=== PATIENT | male | born 1935 | race Caucasian/White ===

== ENCOUNTER 2018-10-20 13:46 | Inpatient (IN) | payer MEDICARE ==
[~2018-10-20] VITALS: Ht 185.4 cm; Wt 64.4 kg
[~2018-10-20 13:46] MED LIST: FELO5TAB31 PO; PROP150T28 PO
[2018-10-20] MEDS ORDERED: HYDROCODONE/ACETAMINOPHEN 5/325 MG TAB ONE (14:41)
[2018-10-20] MEDS ORDERED: KETOROLAC TROMETHAMINE 15MG/ML ONE (14:41)
[2018-10-20 15:04] LABS: BASOPHILS % (AUTO) 0.7 % (0.0-5.0); HEMATOCRIT 24.2 % (42-54); LYMPHOCYTES % (AUTO) 0.5 % (21.0-51.0); MEAN CORPUSCULAR HEMOGLOBIN 29.9 pg (27.0-33.0); MEAN CORPUSCULAR HGB CONC 33.8 g/dL (32.0-36.0); MEAN CORPUSCULAR VOLUME 88.3 fL (79-99); MONOCYTES % (AUTO) 0.1 % (3.0-13.0); NEUTROPHILS % (AUTO) 98.7 % (40.0-77.0); NUCLEATED RED BLOOD CELLS 0.1 % (0.0-0.19); PLATELET COUNT (AUTO) 205 K/uL (130-400); RED BLOOD CELL COUNT(AUTO) 2.74 MIL/uL (4.50-6.20); RED CELL DISTRIBUTION WIDTH 16.5 % (11.0-15.5); WHITE BLOOD COUNT (AUTO) 10.6 K/uL (4.8-10.8)
[2018-10-20 15:16] LABS: CREATININE 0.8 mg/dL (0.5-1.5); POTASSIUM 4.2 mmol/L (3.5-5.1)
[2018-10-20 16:33] LABS: APPEARANCE,URINE Clear (CLEAR); BILIRUBIN,URINE Negative (NEGATIVE); COLOR,URINE Yellow (YELLOW); GLUCOSE, URINE (UA) Negative (NEGATIVE); KETONES,URINE Negative (NEGATIVE); LEUKOCYTE ESTERASE ,URINE Negative (NEGATIVE); NITRATE,URINE Negative (NEGATIVE); OCCULT BLOOD,URINE Negative (NEGATIVE); PH,URINE 7.5 (5.0-8.0); PROTEIN,URINE Negative (NEGATIVE)
[2018-10-20 20:36] VITALS: BP 115/58
[2018-10-20] MEDS ORDERED: SODIUM CHLORIDE 0.9% 1000ML 1,000 ML IV SCH (21:15)
[2018-10-20] MEDS: KETOROLAC TROMETHAMINE 30MG/ML IV PRN (23:08)
[2018-10-20 23:51] VITALS: BP 100/53
[2018-10-21 04:49] VITALS: BP 108/62
[2018-10-21 08:00] VITALS: BP 124/64
[2018-10-21] MEDS ORDERED: LISI2.5T2 PO (09:48)
[2018-10-21] MEDS ORDERED: PROP150T28 PO (09:48)
--- NOTE | 2018-10-21 11:30 | NUR ---
DC PLAN VISITED WITH PATIENT. PATIENT LIVES WITH SPOUSE. INDEPENDENT ABLE TO PERFORM ADL'S. PATIENT HAS [employer]. WALKER AND CANE AVAILABLE. PATIENT FEELS SAFE TO RETURN HOME. Addendum: 10/21/18 at 1132 by DAYAMI CARRASCO RN CM Amended: Links added.
[2018-10-21 12:00] VITALS: BP 101/50
--- NOTE | 2018-10-21 14:41 | NUR ---
DC PLAN CHANGED FROM HOME TO SNF. [facility] SIGNED FOR [facility]. REP AWARE VISITING PATIENT. PENDING PT EVAL NOTES. PER PATIENT HAS BEEN TO HOSPITAL IN LAST 30 DAYS MIGHT NOT NEED 3 MIDNIGHTS. [facility] CHECKING RECORDS. Addendum: 10/21/18 at 1443 by DAYAMI CARRASCO RN CM Amended: Links added.
--- NOTE | 2018-10-21 15:14 | NUR ---
BACK BRACE ORDERED BY NURSING.Will utilize back brace with PT activity once available. Addendum: 10/21/18 at 1516 by ILEANA NEWMAN, PT PT Amended: Links added.
[2018-10-21] MEDS: KETOROLAC TROMETHAMINE 30MG/ML IV PRN (15:44)
--- NOTE | 2018-10-21 15:46 | NUR ---
RD Notification Patient tolerating current appetite with PO intake 75-100%. Rec to add Ensure BID as per patient request. Patient reports feelings of constipation. Patient LBM 10/20/18. Patient monitored labs: Cl 100, CO2 33, BUN 22, Glu 229. RD to continue to monitor. Please notify RD as nutritional concerns arise. Thank you. Addendum: 10/21/18 at [address] RD Amended: Links added.
[2018-10-21 16:00] VITALS: BP 114/57
--- NOTE | 2018-10-21 16:53 | NUR ---
SONG BENITES [facility] CALLED CONFIRMED THAT PATIENT HAS BEEN IN HOSPITAL IN THE LAST 30 DAYS. DOES NOT NEED 3 MIDNIGHTS. LYNDA DONE AND SENT. PATIENT ABLE TO AMBULATE WILL GO VIA F[facility]ILITY [facility]. Addendum: 10/21/18 at 1655 by DAYAMI CARRASCO RN CM Amended: Links added.
--- NOTE | 2018-10-22 08:53 | NUR ---
DC PLAN VISITED WITH PATIENT. BEATRIZ SIGNED FOR [facility] REP VISITED AND ACCEPTED PATIENT. LET NURSE KNOW. LYNDA DONE AND SENT. WILL GO VIA FACILITY [facility]. Addendum: 10/22/18 at 0855 by DAYAMI CARRASCO RN CM Amended: Links added.
[2018-10-22] MEDS ORDERED: LISINOPRIL 2.5 MG TABLET PO SCH (09:00)
[2018-10-22] MEDS ORDERED: PROPAFENONE HCL 150 MG TABLET PO SCH (09:00)
== END 2018-10-21 19:15 | DRG 552 ==
LOC: EDH 13:46 → EDHIP 17:45 → 4BH 18:24
PROVIDERS: ADMIT Internal Medicine Hematology & Oncology; ATTEND Internal Medicine Hematology & Oncology
DX: S22.089A Unspecified fracture of T11-T12 vertebra, initial encounter for closed fracture (principal); C85.90 Non-Hodgkin lymphoma, unspecified, unspecified site; R55 Syncope and collapse; D64.9 Anemia, unspecified; Z96.649 Presence of unspecified artificial hip joint; W01.0XXA Fall on same level from slipping, tripping and stumbling without subsequent striking against object, initial encounter; Y93.89 Activity, other specified; Y92.89 Other specified places as the place of occurrence of the external cause; Y99.8 Other external cause status
CPT/HCPCS: 36415; 71045; 72100; 80048; 81003; 84484; 85025; 93005; 97039; G0378; J1885; J7030

== ENCOUNTER 2018-10-23 14:13 | Inpatient (IN) | payer MEDICARE | END 2018-10-31 18:19 | LOC: EDH 14:13 → 2AH 10-27 14:59 → EDHIP 15:50 → 3DH 18:03 | DX: T45.1X5A Adverse effect of antineoplastic and immunosuppressive drugs, initial encounter (principal); A41.9 Sepsis, unspecified organism; D61.810 Antineoplastic chemotherapy induced pancytopenia; G93.41 Metabolic encephalopathy; D61.818 Other pancytopenia; C85.90 Non-Hodgkin lymphoma, unspecified, unspecified site; J40 Bronchitis, not specified as acute or chronic; D70.1 Agranulocytosis secondary to cancer chemotherapy; D69.59 Other secondary thrombocytopenia ==